=== PATIENT | female | born 1985 | race Two or more races ===

== ENCOUNTER 2023-12-22 19:48 | Inpatient (IN) | payer MEDICAID ==
[~2023-12-22] VITALS: Ht 162.6 cm; Wt 81.8 kg
[2023-12-22 08:40] VITALS: BP 114/71; TEMP 98.8; O2SAT 97
[2023-12-22] MEDS ORDERED: ONDANSETRON HCL/PF 4 MG/2 ML VIAL IVP PRN (22:00)
[2023-12-22 22:52] VITALS: BP 114/70; TEMP 98.8; O2SAT 97
[2023-12-22] MEDS: IV LR 1000 ML 1,000 ML IV SCH (23:00)
[2023-12-22] MEDS: MORPHINE SULFATE INJ 2 MG/ML DISP.SYRIN IV PRN (23:00)
[2023-12-23] MEDS ORDERED: CEFEPIME 1 GM VIAL ONE (00:06)
[2023-12-23] MEDS: CEFEPIME 2 GM in IV D5W 100 ML IV ONE (00:30)
[2023-12-23] MEDS: ACETAMINOPHEN 325 MG TABLET PO PRN (05:15)
[2023-12-23 06:28] LABS: BASOPHILS % (AUTO) 0.3 % (0.0-2.0); EOSINOPHILS % (AUTO) 0.3 % (0.0-6.0); HEMATOCRIT 37 % (33-45); HEMOGLOBIN 12.1 g/dL (11.5-14.8); LYMPHOCYTES # (AUTO) 2.7 K/uL (0.8-4.8); LYMPHOCYTES % (AUTO) 20.4 % (20.0-44.0); MEAN CORPUSCULAR HEMOGLOBIN 28 PG (26.0-33.0); MEAN CORPUSCULAR HGB CONC 33 g/dl (31.0-36.0); MEAN CORPUSCULAR VOLUME 85 fL (82-100); MONOCYTES # (AUTO) 0.7 K/uL (0.1-1.30); NEUTROPHILS # (AUTO) 9.7 K/uL (1.8-8.9); PLATELET COUNT (AUTO) 280 K/uL (150-450); RED BLOOD CELL COUNT(AUTO) 4.34 MIL/uL (4.0-5.2); WHITE BLOOD COUNT (AUTO) 13.1 K/uL (4.3-11.0)
[2023-12-23 06:35] LABS: ALBUMIN 2.8 g/dL (3.4-5.0); BILIRUBIN,TOTAL 0.5 mg/dL (0.2-1.0); CALCIUM, SERUM 8.5 mg/dL (8.5-10.1); CREATININE 0.8 mg/dL (0.6-1.3); PHOSPHORUS 3.7 mg/dL (2.5-4.9); POTASSIUM 3.5 mmol/L (3.5-5.1)
[2023-12-23 08:00] VITALS: BP 105/61; TEMP 98.3; O2SAT 98
[2023-12-23] MEDS: CEFEPIME 2 GM in IV D5W 100 ML IV SCH (11:37)
[2023-12-23 16:00] VITALS: BP 112/71; TEMP 98.8; O2SAT 98
[2023-12-23] MEDS: MORPHINE SULFATE INJ 2 MG/ML DISP.SYRIN IV PRN (17:25)
[2023-12-23 20:00] VITALS: BP 113/65; TEMP 98.8; O2SAT 96
[2023-12-23 20:14] VITALS: BP 113/65; TEMP 98.8; O2SAT 96
[2023-12-23] MEDS: HEPARIN SODIUM, PORCINE 5000 UNITS/1 ML VIAL SQ SCH (20:45)
[2023-12-24 07:36] LABS: BASOPHILS % (AUTO) 0.5 % (0.0-2.0); EOSINOPHILS # (AUTO) 0.1 K/uL (0.0-0.7); EOSINOPHILS % (AUTO) 0.7 % (0.0-6.0); HEMATOCRIT 36 % (33-45); LYMPHOCYTES # (AUTO) 3.1 K/uL (0.8-4.8); LYMPHOCYTES % (AUTO) 31.1 % (20.0-44.0); MEAN CORPUSCULAR HEMOGLOBIN 28 PG (26.0-33.0); MEAN CORPUSCULAR HGB CONC 33 g/dl (31.0-36.0); MEAN CORPUSCULAR VOLUME 86 fL (82-100); MONOCYTES # (AUTO) 0.7 K/uL (0.1-1.30); MONOCYTES % (AUTO) 6.7 % (2.0-12.0); NEUTROPHILS # (AUTO) 6.1 K/uL (1.8-8.9); PLATELET COUNT (AUTO) 274 K/uL (150-450); RED BLOOD CELL COUNT(AUTO) 4.21 MIL/uL (4.0-5.2); RED CELL DISTRIBUTION WIDTH 13.1 % (11.5-15.0)
[2023-12-24 07:56] LABS: ALBUMIN 2.5 g/dL (3.4-5.0); BILIRUBIN,TOTAL 0.3 mg/dL (0.2-1.0); CALCIUM, SERUM 8.5 mg/dL (8.5-10.1); CREATININE 0.8 mg/dL (0.6-1.3); POTASSIUM 3.9 mmol/L (3.5-5.1); TOTAL PROTEIN, SERUM 6.7 g/dL (6.4-8.2)
[2023-12-24 08:00] VITALS: BP 98/64; TEMP 98.3; O2SAT 99
[2023-12-24 16:00] VITALS: BP 101/63; TEMP 98.2; O2SAT 99
[2023-12-24 20:00] VITALS: BP 108/66; TEMP 98.2; O2SAT 97
[2023-12-24 20:03] VITALS: BP 108/66; TEMP 98.2; O2SAT 97
[2023-12-24 22:12] LABS: PREGNANCY TEST URINE QUAL NEGATIVE (NEGATIVE)
[2023-12-24 22:14] LABS: INR 0.97 (0.91-1.10); PROTHROMBIN TIME 10.3 SECS (9.2-11.1)
[2023-12-25 07:00] VITALS: BP 125/75; TEMP 98.4; O2SAT 96
[2023-12-25 07:00] LABS: BASOPHILS # (AUTO) 0.1 K/uL (0.0-0.2); BASOPHILS % (AUTO) 0.7 % (0.0-2.0); EOSINOPHILS # (AUTO) 0.1 K/uL (0.0-0.7); EOSINOPHILS % (AUTO) 1.1 % (0.0-6.0); HEMATOCRIT 36 % (33-45); HEMOGLOBIN 11.8 g/dL (11.5-14.8); LYMPHOCYTES # (AUTO) 2.5 K/uL (0.8-4.8); LYMPHOCYTES % (AUTO) 34.1 % (20.0-44.0); MEAN CORPUSCULAR HEMOGLOBIN 28 PG (26.0-33.0); MEAN CORPUSCULAR HGB CONC 33 g/dl (31.0-36.0); MEAN CORPUSCULAR VOLUME 85 fL (82-100); MONOCYTES # (AUTO) 0.5 K/uL (0.1-1.30); NEUTROPHILS # (AUTO) 4.2 K/uL (1.8-8.9); NEUTROPHILS % (AUTO) 57.1 % (43.0-81.0); PLATELET COUNT (AUTO) 298 K/uL (150-450); RED BLOOD CELL COUNT(AUTO) 4.19 MIL/uL (4.0-5.2); WHITE BLOOD COUNT (AUTO) 7.3 K/uL (4.3-11.0)
[2023-12-25 07:26] LABS: ALBUMIN 2.5 g/dL (3.4-5.0); BILIRUBIN,TOTAL 0.3 mg/dL (0.2-1.0); CALCIUM, SERUM 8.4 mg/dL (8.5-10.1); CREATININE 0.9 mg/dL (0.6-1.3); MAGNESIUM 1.8 mg/dL (1.8-2.4); POTASSIUM 3.7 mmol/L (3.5-5.1); TOTAL PROTEIN, SERUM 6.7 g/dL (6.4-8.2)
[2023-12-25 08:00] VITALS: BP 125/75; TEMP 98.4; O2SAT 96
[2023-12-25] MEDS ORDERED: LIDOCAINE 1%-EPI 1:100,000 20 ML VIAL ONE (11:31)
[2023-12-25] MEDS ORDERED: ANESTHESIA TRAY IN PYXIS 1 EA TRAY MC ONE (11:31)
[2023-12-25] MEDS ORDERED: BUPIVACAINE 0.5 % PF 150 MG/30 ML VIAL ONE (11:32)
[2023-12-25] MEDS ORDERED: BACITRACIN ZINC OINT PACKET 1 EA PACKET TP ONE (11:32)
[2023-12-25] MEDS ORDERED: SCOPOLAMINE PATCH 1 MG/72HR TD ONE (13:03)
[2023-12-25] MEDS ORDERED: MIDAZOLAM HCL 2 MG/2ML VIAL ONE (13:04)
[2023-12-25] MEDS ORDERED: FENTANYL PF 100MCG/2ML AMPUL ONE (13:04)
[2023-12-25] MEDS ORDERED: FAMOTIDINE/PF INJ 20 MG/2 ML VIAL IV ONE (13:04)
[2023-12-25] MEDS ORDERED: ROPIVACAINE HCL 0.5% 5 MG/ML 30ML VIAL ONE (13:04)
[2023-12-25] MEDS ORDERED: ROCURONIUM BROMIDE 50 MG/5 ML ONE (13:04)
[2023-12-25] MEDS ORDERED: LIDOCAINE 2% JEL UROJET 10 ML MM ONE (13:05)
[2023-12-25] MEDS ORDERED: INDOCYANINE GREEN 25 MG/VIAL VIAL IJ ONE (13:43)
[2023-12-25] MEDS ORDERED: LABETALOL 20 MG/4 ML VIAL ONE (13:52)
[2023-12-25] MEDS ORDERED: LIDOCAINE 1% INJ 50 ML MDV IJ ONE (14:59)
[2023-12-25] MEDS ORDERED: MEPERIDINE25 MG SYR 25 MG/ML VIAL ONE (15:41)
[2023-12-25] MEDS ORDERED: HYDROMORPHONE 1 MG/1 ML DISP.SYRIN ONE (16:01)
[2023-12-25] MEDS ORDERED: KETOROLAC TROMETHAMINE INJ 30 MG/ML VIAL ONE (16:07)
[2023-12-25 16:30] VITALS: BP 148/83; O2SAT 99
[2023-12-25] MEDS ORDERED: IBUPROFEN 600 MG TABLET PO PRN (17:00)
[2023-12-25] MEDS: GABAPENTIN 100 MG CAPSULE PO SCH (17:10)
[2023-12-25] MEDS: HYDROCODONE/APAP 5/325MG TABLET PO PRN (17:11)
[2023-12-25 20:00] VITALS: BP 134/68; TEMP 99.1; O2SAT 98
[2023-12-26 07:44] LABS: BASOPHILS % (AUTO) 0.2 % (0.0-2.0); HEMATOCRIT 35 % (33-45); HEMOGLOBIN 11.3 g/dL (11.5-14.8); LYMPHOCYTES # (AUTO) 2.1 K/uL (0.8-4.8); LYMPHOCYTES % (AUTO) 15.4 % (20.0-44.0); MEAN CORPUSCULAR HEMOGLOBIN 28 PG (26.0-33.0); MEAN CORPUSCULAR HGB CONC 33 g/dl (31.0-36.0); MEAN CORPUSCULAR VOLUME 87 fL (82-100); MONOCYTES # (AUTO) 0.9 K/uL (0.1-1.30); MONOCYTES % (AUTO) 6.6 % (2.0-12.0); NEUTROPHILS # (AUTO) 10.8 K/uL (1.8-8.9); NEUTROPHILS % (AUTO) 77.8 % (43.0-81.0); PLATELET COUNT (AUTO) 335 K/uL (150-450); RED BLOOD CELL COUNT(AUTO) 4.01 MIL/uL (4.0-5.2); RED CELL DISTRIBUTION WIDTH 13.1 % (11.5-15.0); WHITE BLOOD COUNT (AUTO) 13.9 K/uL (4.3-11.0)
[2023-12-26 07:59] LABS: ALBUMIN 2.6 g/dL (3.4-5.0); BILIRUBIN,TOTAL 0.3 mg/dL (0.2-1.0); CALCIUM, SERUM 8.7 mg/dL (8.5-10.1); CREATININE 0.9 mg/dL (0.6-1.3); POTASSIUM 3.5 mmol/L (3.5-5.1); TOTAL PROTEIN, SERUM 6.7 g/dL (6.4-8.2)
[2023-12-26 08:41] VITALS: BP 105/61; TEMP 98.4; O2SAT 97
[2023-12-26 16:55] VITALS: BP 118/74; TEMP 99.1; O2SAT 98
[2023-12-26] MEDS: MENTHOL/CETYLPYRD (CEPACOL) 1 LOZ LOZENGE PO PRN (18:26)
[2023-12-26 20:00] VITALS: BP 120/73; TEMP 99.3; O2SAT 98
[2023-12-26 21:52] VITALS: BP 120/73; TEMP 99.3; O2SAT 98
[2023-12-27 07:30] VITALS: BP 109/67; TEMP 97.9; O2SAT 98
[2023-12-27] MEDS ORDERED: HYDR-3972 PO (08:08)
[2023-12-27] MEDS ORDERED: ACID1TAB12 PO (08:08)
[2023-12-27] MEDS ORDERED: ONDA4TAB5 PO (08:08)
[2023-12-27] MEDS ORDERED: AMOX-430 PO (08:08)
[2023-12-28] MEDS ORDERED: AMOX-430 PO (07:10)
[2023-12-28] MEDS ORDERED: ONDA4TAB5 PO (07:10)
[2023-12-28] MEDS ORDERED: ACID1TAB12 PO (07:10)
[2023-12-28] MEDS ORDERED: HYDR-3972 PO (07:10)
== END 2023-12-27 17:15 | disposition still patient (30) | DRG 710 ==
LOC: MED 21:10
PROVIDERS: ADMIT Internal Medicine; ATTEND Nurse Practitioner Acute Care
PROC: 0FT44ZZ Resection of Gallbladder, Percutaneous Endoscopic Approach (ICD-10-PCS; principal; 2023-12-25)
PROC: 0DBU4ZZ Excision of Omentum, Percutaneous Endoscopic Approach (ICD-10-PCS; 2023-12-25)
PROC: 0FB04ZX Excision of Liver, Percutaneous Endoscopic Approach, Diagnostic (ICD-10-PCS; 2023-12-25)
PROC: BF5C2Z0 Other Imaging of Hepatobiliary System, All using Fluorescing Agent, Intraoperative (ICD-10-PCS; 2023-12-25)
DX: A41.9 Sepsis, unspecified organism (principal); K80.00 Calculus of gallbladder with acute cholecystitis without obstruction; E66.9 Obesity, unspecified; Z68.31 Body mass index [BMI] 31.0-31.9, adult; K40.90 Unilateral inguinal hernia, without obstruction or gangrene, not specified as recurrent; K21.9 Gastro-esophageal reflux disease without esophagitis; K66.0 Peritoneal adhesions (postprocedural) (postinfection); D25.9 Leiomyoma of uterus, unspecified
CPT/HCPCS: 36415; 71045-TC; 76856-TC; 78226; 80053-TC; 83735-TC; 84100-TC; 84702-TC; 84703-TC; 85025-TC; 85610-TC; A4223; A6253; A6403; A9537; G0378; J0690; J0692; J1100; J1170; J1644; J1885; J2175; J2250; J2270; J2405; J2704; J2765; J2795; J3010; J3490; J7030; J7050; J7060; J7120; Q9968